=== PATIENT | female | born 1950 | race Caucasian/White ===

== ENCOUNTER → 2023-11-30 11:52 | Outpatient (REF) | payer MEDICARE, SELFPAY | LOC: RAD 11:52 | PROVIDERS: ATTENDING PHYSICIAN Internal Medicine | DX: E78.5 Hyperlipidemia, unspecified (principal) | CPT/HCPCS: 75571 ==

== ENCOUNTER → 2023-12-08 12:50 | Outpatient (REF) | payer MEDICARE, SELFPAY | LOC: WDC 12:50 | PROVIDERS: ATTENDING PHYSICIAN Internal Medicine | DX: Z12.31 Encounter for screening mammogram for malignant neoplasm of breast (principal) | CPT/HCPCS: 77063; 77067 ==

== ENCOUNTER → 2025-03-02 13:11 | Outpatient (REF) | payer MEDICARE, SELFPAY | LOC: WDC 13:11 | PROVIDERS: ATTENDING PHYSICIAN Internal Medicine | DX: Z12.31 Encounter for screening mammogram for malignant neoplasm of breast (principal) | CPT/HCPCS: 77063; 77067 ==